=== PATIENT | female | born 1965 | race Caucasian/White ===

== ENCOUNTER 2017-10-10 11:14 | Emergency (ER) | payer OTHER ==
[~2017-10-10] VITALS: Ht 170.2 cm; Wt 97.5 kg
[~2017-10-10 11:14] MED LIST: ASPI325 PO; Gabapentin600 MG PO; IBUP800 PO; LORA10 PO; OXYC5 PO; PARO25 PO; PHENYLEPHRINE HCL PO; Theratrum Comp1 EACH PO; VICODIN ES 7.51 EACH PO; VITAMIN D35000 UNIT PO; [UNRECOGNIZED DRUG - CODE] BOTHEYES
[2017-10-10 13:08] LABS: BASOPHILS ABSOLUTE AUTO 0.07 K/mm3 (0.00-0.23); BASOPHILS PERCENT AUTO 1 % (0-2); EOSINOPHILS ABSOLUTE AUTO 0.11 K/mm3 (0.00-0.68); EOSINOPHILS PERCENT AUTO 1 % (0-6); Hematocrit 41.9 % (33.0-51.0); Hemoglobin 14.7 g/dL (11.5-16.0); IMMATURE GRAN ABSOLUTE AUTO 0.01 K/mm3 (0.00-0.10); IMMATURE GRAN PERCENT AUTO 0 % (0-1); LYMPHOCYTES ABSOLUTE AUTO 2.43 K/mm3 (0.84-5.20); LYMPHOCYTES PERCENT AUTO 28 % (21-46); MONOCYTES PERCENT AUTO 7 % (4-13); Mean Corpuscular HGB 29.9 pg (26.0-34.0); Mean Corpuscular HGB Conc 35.1 g/dL (31.5-36.5); Mean Corpuscular Volume 85 fL (80-100); Mean Platelet Volume 8.4 fL (9.1-12.4); NEUTROPHILS ABSOLUTE AUTO 5.49 K/mm3 (1.96-9.15); NEUTROPHILS PERCENT AUTO 63 % (41-73); Platelet Count 424 K/mm3 (150-400); RDW Coefficient Variation 11.6 % (11.7-14.2); RDW Standard Deviation 35.4 fL (35.1-46.3); Red Blood Cell Count 4.91 M/mm3 (3.80-5.20); White Blood Cell Count 8.71 K/mm3 (4.00-11.30)
[2017-10-10 13:26] LABS: Troponin I <0.015 ng/mL (0.000-0.040)
[2017-10-10 13:27] LABS: Alanine Aminotransfer (ALT/SGP 29 U/L (12-78); Albumin, Blood 3.8 g/dL (3.4-5.0); Albumin/Globulin Ratio 0.8 (0.8-1.8); Alk Phos 102 U/L (50-136); Anion Gap 9 mmol/L (6-16); Aspartate Aminotrans (AST/SGOT 21 U/L (12-37); Bilirubin, Total 0.2 mg/dL (0.1-1.0); Blood Urea Nitrogen 11 mg/dL (8-24); Bun/Creatinine Ratio 14.9 (12.0-20.0); CO2, Blood 25 mmol/L (21-32); Calcium, Blood 8.8 mg/dL (8.5-10.1); Chloride, Blood 105 mmol/L (98-108); Creatinine, Blood 0.74 mg/dL (0.40-1.00); Globulin, Blood 4.5 g/dL (2.2-4.0); Glomerular Filtration Rate >60 (60-); Glucose, Blood 137 mg/dL (70-99); Potassium, Blood 3.3 mmol/L (3.5-5.5); Sodium, Blood 139 mmol/L (136-145); Total Protein, Blood 8.3 g/dL (6.4-8.2)
== END 2017-10-10 16:46 | disposition home or self-care (01) ==
LOC: ER 11:14
PROVIDERS: Emergency Medicine
DX: R07.9 Chest pain, unspecified (principal); I10 Essential (primary) hypertension; F31.9 Bipolar disorder, unspecified; Z88.1 Allergy status to other antibiotic agents; Z79.899 Other long term (current) drug therapy; Z79.82 Long term (current) use of aspirin; Z98.51 Tubal ligation status
CPT/HCPCS: 36415; 71046; 80053; 81000; 83880; 84443; 84484; 85025; 93005; 93010; 99283

== ENCOUNTER → 2017-11-28 | Outpatient (CLI) | payer OTHER ==
[2017-11-28 13:56] LABS: Source, Urine Clean Catch
[2017-11-28 16:31] LABS: Appearance, Urine Hazy (Clear); Bilirubin, Urine Neg (Neg); Blood, Urine 2+ (Neg); Color, Urine Yellow (P-Yellow); Glucose Qualitative, Urine Neg (Neg); Ketones, Urine Neg (Neg); Leukocyte Esterase, Urine 1+ (Neg); Nitrite, Urine Neg (Neg); Protein, Urine 2+ (Neg); Specific Gravity, Urine 1.025 (1.003-1.022); Urobilinogen, Urine NORM (Normal)
[2017-11-28 16:45] LABS: Amorphous Mod (0-Heavy)
[2017-11-28 16:46] LABS: Bacteria Mod /hpf; Red Blood Cells, Urine 0-2 /hpf (0-2); Squamous Epithelial Cells Mod /hpf (Few)
[2017-11-28 16:47] LABS: Calcium Oxalate Crystals Mod /hpf; Yeast/Fungi Urine Few /hpf
[2017-11-29 10:48] LABS: Candida species (DNA Probe) Positive (NEGATIVE); G. vaginalis (DNA Probe) Negative (NEGATIVE); T. vaginalis (DNA Probe) Negative (NEGATIVE)
[2017-12-01 01:40] LABS: HPV Genotype 16 Not Detected (NOTDET); HPV Genotype 18 Not Detected (NOTDET)
[2017-12-17 08:43] LABS: HPV High Risk Other Not Detected (NOTDET)
== END ==
LOC: LAB 12:00 → LAB SHORT 12:00
PROVIDERS: Nurse Practitioner Family
DX: Z12.4 Encounter for screening for malignant neoplasm of cervix (principal); N89.8 Other specified noninflammatory disorders of vagina; R82.99 Other abnormal findings in urine
CPT/HCPCS: 81001; 87086; 87480; 87510; 87624; 87660; G0145

== ENCOUNTER → 2017-12-27 | Outpatient (CLI) | payer OTHER | LOC: LAB SHORT 14:48 → LAB 14:48 | DX: J02.9 Acute pharyngitis, unspecified (principal); R39.89 Other symptoms and signs involving the genitourinary system | CPT/HCPCS: 87070; 87086 ==

== ENCOUNTER 2018-02-19 15:51 | Emergency (ER) | payer OTHER ==
[~2018-02-19] VITALS: Ht 170.2 cm; Wt 99.8 kg
[2018-02-19] MEDS ORDERED: CYCL10 PO (16:18)
[2018-02-19] MEDS ORDERED: ZOLP10 PO (16:18)
[2018-02-19] MEDS ORDERED: DULO30 PO (16:19)
[2018-02-19] MEDS ORDERED: LISI5 PO (16:19)
[2018-02-19] MEDS ORDERED: EZET10 PO (16:19)
[2018-02-19 16:38] LABS: BASOPHILS ABSOLUTE AUTO 0.08 K/mm3 (0.00-0.23); BASOPHILS PERCENT AUTO 1 % (0-2); EOSINOPHILS ABSOLUTE AUTO 0.47 K/mm3 (0.00-0.68); EOSINOPHILS PERCENT AUTO 4 % (0-6); Hematocrit 46.1 % (33.0-51.0); Hemoglobin 16.1 g/dL (11.5-16.0); IMMATURE GRAN ABSOLUTE AUTO 0.07 K/mm3 (0.00-0.10); IMMATURE GRAN PERCENT AUTO 1 % (0-1); LYMPHOCYTES ABSOLUTE AUTO 3.05 K/mm3 (0.84-5.20); LYMPHOCYTES PERCENT AUTO 28 % (21-46); MONOCYTES ABSOLUTE AUTO 0.72 K/mm3 (0.16-1.47); MONOCYTES PERCENT AUTO 7 % (4-13); Mean Corpuscular HGB 29.8 pg (26.0-34.0); Mean Corpuscular HGB Conc 34.9 g/dL (31.5-36.5); Mean Corpuscular Volume 85 fL (80-100); Mean Platelet Volume 8.1 fL (9.1-12.4); NEUTROPHILS ABSOLUTE AUTO 6.62 K/mm3 (1.96-9.15); NEUTROPHILS PERCENT AUTO 60 % (41-73); Platelet Count 484 K/mm3 (150-400); RDW Coefficient Variation 11.5 % (11.7-14.2); RDW Standard Deviation 35.5 fL (35.1-46.3); Red Blood Cell Count 5.41 M/mm3 (3.80-5.20); White Blood Cell Count 11.01 K/mm3 (4.00-11.30)
[2018-02-19 16:55] LABS: Alanine Aminotransfer (ALT/SGP 39 U/L (12-78); Albumin, Blood 3.8 g/dL (3.4-5.0); Albumin/Globulin Ratio 0.8 (0.8-1.8); Alk Phos 111 U/L (50-136); Anion Gap 8 mmol/L (6-16); Aspartate Aminotrans (AST/SGOT 32 U/L (12-37); Bilirubin, Total 0.3 mg/dL (0.1-1.0); Blood Urea Nitrogen 10 mg/dL (8-24); Bun/Creatinine Ratio 12.6 (12.0-20.0); CO2, Blood 23 mmol/L (21-32); Calcium, Blood 9.6 mg/dL (8.5-10.1); Chloride, Blood 107 mmol/L (98-108); Creatinine, Blood 0.79 mg/dL (0.40-1.00); Globulin, Blood 4.9 g/dL (2.2-4.0); Glomerular Filtration Rate >60 (60-); Glucose, Blood 187 mg/dL (70-99); Potassium, Blood 4.2 mmol/L (3.5-5.5); Sodium, Blood 138 mmol/L (136-145); Total Protein, Blood 8.7 g/dL (6.4-8.2)
[2018-02-19 17:33] LABS: Source, Urine Catheter
[2018-02-19 17:36] LABS: Bilirubin, Urine Neg (Neg); Blood, Urine 5+ (Neg); Glucose Qualitative, Urine Neg (Neg); Ketones, Urine 1+ (Neg); Leukocyte Esterase, Urine 3+ (Neg); Nitrite, Urine Neg (Neg); Protein, Urine 4+ (Neg); Specific Gravity, Urine 1.025 (1.003-1.022); Urobilinogen, Urine NORM (Normal)
[2018-02-19 17:45] LABS: Appearance, Urine Cloudy (Clear); Color, Urine Yellow (P-Yellow)
[2018-02-19 17:46] LABS: Red Blood Cells, Urine TNTC /hpf (0-2)
[2018-02-19 17:47] LABS: Bacteria Few /hpf; Squamous Epithelial Cells Rare /hpf (Few); Transitional Epithelial Cells Few /hpf (0-Rare); White Blood Cells, Urine 25-50 /hpf (0-5)
[2018-02-19] MEDS ORDERED: Cipro500 MG PO (19:11)
== END 2018-02-19 19:39 | disposition home or self-care (01) ==
LOC: ER 15:51
PROVIDERS: Emergency Medicine; Internal Medicine
DX: R42 Dizziness and giddiness (principal); R11.0 Nausea; Z88.8 Allergy status to other drugs, medicaments and biological substances; Z79.899 Other long term (current) drug therapy; Z79.891 Long term (current) use of opiate analgesic; F32.9 Major depressive disorder, single episode, unspecified
CPT/HCPCS: 36415; 70450; 80053; 81001; 85025; 93005; 93010; 96361; 96374; 99284; J2405; J7120

== ENCOUNTER 2018-05-21 17:05 | Emergency (ER) | payer OTHER ==
[~2018-05-21] VITALS: Ht 167.6 cm; Wt 104.3 kg
[~2018-05-21 17:05] MED LIST changes: +CYCL10 PO; +Cipro500 MG PO; +DULO30 PO; +EZET10 PO; +LISI5 PO; +ZOLP10 PO
[2018-05-21] MEDS ORDERED: FETZIMA20 MG PO (17:28)
[2018-05-21 18:27] LABS: BASOPHILS ABSOLUTE AUTO 0.05 K/mm3 (0.00-0.23); BASOPHILS PERCENT AUTO 1 % (0-2); EOSINOPHILS ABSOLUTE AUTO 0.18 K/mm3 (0.00-0.68); EOSINOPHILS PERCENT AUTO 2 % (0-6); Hematocrit 39.5 % (33.0-51.0); Hemoglobin 13.8 g/dL (11.5-16.0); IMMATURE GRAN ABSOLUTE AUTO 0.02 K/mm3 (0.00-0.10); IMMATURE GRAN PERCENT AUTO 0 % (0-1); LYMPHOCYTES ABSOLUTE AUTO 2.58 K/mm3 (0.84-5.20); LYMPHOCYTES PERCENT AUTO 26 % (21-46); MONOCYTES ABSOLUTE AUTO 0.59 K/mm3 (0.16-1.47); MONOCYTES PERCENT AUTO 6 % (4-13); Mean Corpuscular HGB 29.4 pg (26.0-34.0); Mean Corpuscular HGB Conc 34.9 g/dL (31.5-36.5); Mean Corpuscular Volume 84 fL (80-100); Mean Platelet Volume 8.2 fL (9.1-12.4); NEUTROPHILS ABSOLUTE AUTO 6.44 K/mm3 (1.96-9.15); NEUTROPHILS PERCENT AUTO 65 % (41-73); Platelet Count 435 K/mm3 (150-400); RDW Coefficient Variation 12.4 % (11.7-14.2); RDW Standard Deviation 37.6 fL (35.1-46.3); White Blood Cell Count 9.86 K/mm3 (4.00-11.30)
[2018-05-21 18:51] LABS: Albumin, Blood 4.1 g/dL (3.4-5.0); Bilirubin, Total 0.2 mg/dL (0.1-1.0); Bun/Creatinine Ratio 12.2 (12.0-20.0); Calcium, Blood 9.3 mg/dL (8.5-10.1); Creatinine, Blood 1.39 mg/dL (0.40-1.00); Globulin, Blood 4.3 g/dL (2.2-4.0); Potassium, Blood 3.7 mmol/L (3.5-5.5); Total Protein, Blood 8.4 g/dL (6.4-8.2)
[2018-05-21 19:06] LABS: Source, Urine Clean Catch
[2018-05-21 19:08] LABS: Bilirubin, Urine Neg (Neg); Blood, Urine Neg (Neg); Glucose Qualitative, Urine Neg (Neg); Ketones, Urine Neg (Neg); Leukocyte Esterase, Urine 1+ (Neg); Nitrite, Urine Neg (Neg); Protein, Urine Neg (Neg); Specific Gravity, Urine 1.015 (1.003-1.022); Urobilinogen, Urine NORM (Normal)
[2018-05-21 19:17] LABS: Appearance, Urine Cloudy (Clear); Color, Urine Yellow (P-Yellow)
[2018-05-21 19:19] LABS: Red Blood Cells, Urine Not Seen /hpf (0-2); White Blood Cells, Urine 0-2 /hpf (0-5)
[2018-05-21 19:20] LABS: Bacteria Rare /hpf; Squamous Epithelial Cells Not Seen /hpf (Few); Transitional Epithelial Cells Rare /hpf (0-Rare)
[2018-05-21 19:21] LABS: Calcium Oxalate Crystals Few /hpf
== END 2018-05-21 19:47 | disposition home or self-care (01) ==
LOC: ER 17:05
PROVIDERS: Emergency Medicine
DX: E86.0 Dehydration (principal); Z88.1 Allergy status to other antibiotic agents; Z79.899 Other long term (current) drug therapy; Z79.891 Long term (current) use of opiate analgesic; I95.1 Orthostatic hypotension; F32.9 Major depressive disorder, single episode, unspecified
CPT/HCPCS: 36415; 71046; 80053; 81001; 85025; 93005; 93010; 96374; 99284-25; J2405; J7120

== ENCOUNTER → 2019-04-07 | Outpatient (CLI) | payer OTHER ==
[~2019-04-07] MED LIST changes: +DESV50 PO; +ESTRADIOL42.5 GM; +FETZIMA20 MG PO; +GEMF600 PO; +HYDPAM50; +Norco 7.5-3251 EACH PO
[2019-04-07 14:24] LABS: U Amphetamine Screen Not Detected; U Barbituate Screen Not Detected; U Benzodiazapine Screen Not Detected; U Buprenorphine Screen Not Detected; U Cannabinoids Screen DETECTED; U Cocaine Screen Not Detected; U Methadone Screen Not Detected; U Methamphetamine Screen Not Detected; U Opiates Screen Not Detected; U Oxycodone Screen DETECTED; U Phencyclidine Screen Not Detected; U Propoxyphene Screen Not Detected
== END | disposition home or self-care (01) ==
LOC: LAB SHORT 13:01 → LAB 13:01
PROVIDERS: Registered Nurse Psychiatric/Mental Health
DX: F33.0 Major depressive disorder, recurrent, mild (principal); Z79.899 Other long term (current) drug therapy
CPT/HCPCS: G0480

== ENCOUNTER → 2020-06-07 | Outpatient (CLI) | payer OTHER | END | disposition home or self-care (01) | LOC: LAB SHORT 19:45 → LAB 19:45 | DX: R30.0 Dysuria (principal) | CPT/HCPCS: 87086 ==

== ENCOUNTER → 2020-06-13 | Outpatient (CLI) | payer OTHER ==
[2020-06-13 19:57] LABS: Percent Saturation 20.9 % (15.0-50.0)
== END | disposition home or self-care (01) ==
LOC: LAB 17:51 → LAB SHORT 17:51
PROVIDERS: Internal Medicine Hematology & Oncology
DX: D47.3 Essential (hemorrhagic) thrombocythemia (principal)
CPT/HCPCS: 82607; 82728; 82746; 83540; 83550

== ENCOUNTER → 2020-06-30 | Outpatient (CLI) | payer OTHER ==
[2020-06-30 14:43] LABS: Candida species (DNA Probe) Negative (NEGATIVE); G. vaginalis (DNA Probe) Negative (NEGATIVE); T. vaginalis (DNA Probe) Negative (NEGATIVE)
== END | disposition home or self-care (01) ==
LOC: LAB SHORT 10:00 → LAB 10:00
PROVIDERS: Nurse Practitioner Family
DX: N89.8 Other specified noninflammatory disorders of vagina (principal)
CPT/HCPCS: 87480; 87510; 87660

== ENCOUNTER 2020-07-28 09:32 | Day surgery (SDC) | payer OTHER ==
[~2020-07-28] VITALS: Ht 167.6 cm; Wt 97.7 kg
[~2020-07-28 09:32] MED LIST changes: -ESTRADIOL42.5 GM; +ESTRADIOL42.5 GM VAG
--- NOTE | 2020-07-28 10:17 | NUR ---
History, Chart, Medications and Allergies reviewed before start of procedure.Patient confirms NPO status and agrees with scheduled surgery. Patient reports completing Chlorhexadine shower X2 prior to admission to hospital.Surgical site prepped with 2% Chlorhexidine cloth wipe. Lungs clear T/O to Auscultation.
--- NOTE | 2020-07-28 17:46 | NUR ---
PT ARRIVED TO THE ROOM POST-OP AT APPROXIMATELY 1700. SHE AWAKENS TO VERBAL STIMULI BUT IS QUITE DROWSY AND FALLS ASLEEP BETWEEN CARE. SHE RATES HER PAIN AT 10/10. VS ARE STABLE; HOWEVER HER O2 SATURATION DECREASES WHEN ASLEEP. PT IS ON 2L O2 VIA NC AND SHE HAS A CONTINUOUS PULSE OXIMETER IN PLACE, O2 SATURATION DROPS WHEN PT IS ASLEEP IF SHE IS NOT ON OXYGEN. PT WAS EDUCATED THAT SHE CANNOT HAVE FURTHER NARCOTIC PAIN MEDICATION UNTIL SHE IS MORE AWAKE. PT REPORTED UNDERSTANDING AND WAS GIVEN TORADOL TO MANAGE PAIN. SHE APPEARS TO BE HAVING MILD HALLUCINATIONS; SHE REPORTED TO NURSING STAFF THAT SHE SAW A MAN OUTSIDE THE WINDOW AND HE WAS GIVING HER PAIN MEDICATION. PT WAS REORIENTED, WILL CONTINUE TO MONITOR. ATTEMPTED TO CALL PT'S SISTER PER PT REQUEST, MESSAGE LEFT WITH CALL BACK NUMBER. PT APPEARS TO REST COMFORTABLY WITH HER EYES CLOSED BETWEEN CARE.
--- NOTE | 2020-07-28 19:02 | NUR ---
ELEVATED BP PT'S BP IS ELEVATED AT THIS TIME. ANSWERING SERVICE PLACING CALL TO TRADE EMBALMER CAN STACKER R/T ELEVATED BLOOD PRESSURE. AWAITING RETURN CALL AT THIS TIME.
--- NOTE | 2020-07-28 19:44 | NUR ---
METOPROLOL ALLERGY PT HAS ALLERGY LISTED TO METOPROLOL. WHEN ASKED ABOUT ALLERGY SHE REPORTS SHE DOES NOT REMEMBER HAVING AN ALLERGY TO METOPROLOL. DR. TAN NOTIFIED AND STATED IT IS OK TO GIVE LABETOLOL DESPITE ALLERGY TO METOPROLOL. SUBHASH RN NOTIFIED OF ORDERS.
[2020-07-29 05:04] LABS: BASOPHILS ABSOLUTE AUTO 0.02 K/mm3 (0.00-0.23); BASOPHILS PERCENT AUTO 0 % (0-2); EOSINOPHILS PERCENT AUTO 0 % (0-6); Hemoglobin 11.9 g/dL (11.5-16.0); IMMATURE GRAN ABSOLUTE AUTO 0.03 K/mm3 (0.00-0.10); IMMATURE GRAN PERCENT AUTO 0 % (0-1); LYMPHOCYTES ABSOLUTE AUTO 1.48 K/mm3 (0.84-5.20); LYMPHOCYTES PERCENT AUTO 13 % (21-46); MONOCYTES ABSOLUTE AUTO 1.01 K/mm3 (0.16-1.47); MONOCYTES PERCENT AUTO 9 % (4-13); Mean Corpuscular HGB 29.3 pg (26.0-34.0); Mean Corpuscular HGB Conc 33.1 g/dL (31.5-36.5); Mean Corpuscular Volume 89 fL (80-100); Mean Platelet Volume 8.3 fL (9.1-12.4); NEUTROPHILS ABSOLUTE AUTO 9.06 K/mm3 (1.96-9.15); NEUTROPHILS PERCENT AUTO 78 % (41-73); Platelet Count 370 K/mm3 (150-400); RDW Coefficient Variation 11.7 % (11.7-14.2); RDW Standard Deviation 37.2 fL (35.1-46.3); Red Blood Cell Count 4.06 M/mm3 (3.80-5.20)
[2020-07-29 05:26] LABS: Alanine Aminotransfer (ALT/SGP 23 U/L (12-78); Albumin, Blood 3.2 g/dL (3.4-5.0); Albumin/Globulin Ratio 0.9 (0.8-1.8); Alk Phos 78 U/L (50-136); Anion Gap 7 mmol/L (6-16); Aspartate Aminotrans (AST/SGOT 22 U/L (12-37); Bilirubin, Total 0.3 mg/dL (0.1-1.0); Blood Urea Nitrogen 11 mg/dL (8-24); Bun/Creatinine Ratio 15.2 (12.0-20.0); CO2, Blood 24 mmol/L (21-32); Calcium, Blood 8.7 mg/dL (8.5-10.1); Chloride, Blood 109 mmol/L (98-108); Creatinine, Blood 0.73 mg/dL (0.40-1.00); Globulin, Blood 3.6 g/dL (2.2-4.0); Glomerular Filtration Rate >60 (60-); Glucose, Blood 99 mg/dL (70-99); Sodium, Blood 140 mmol/L (136-145); Total Protein, Blood 6.8 g/dL (6.4-8.2)
--- NOTE | 2020-07-29 06:06 | NUR ---
SUMMARY PTS BP IMPROVED. DID NOT REQUIRE PRN MEDS.AMBULATORY TO CHAIR AT BEDSIDE THIS AM.PO PAIN MEDS EFFECTIVE. TOLERATING PO FLUIDS WITHOUT NAUSEA.
--- NOTE | 2020-07-29 09:45 | NUR ---
07/29/20 0945 Ann Ghotra VERIFICATIONS: EDIT CHART.
[2020-07-29] MEDS ORDERED: DOCU100 PO (11:43)
[2020-07-29] MEDS ORDERED: DULCOLAX400 MG/5 M PO (11:44)
[2020-07-29] MEDS ORDERED: SENN187 PO (11:45)
[2020-07-29] MEDS ORDERED: PROM25 PO (11:45)
[2020-07-29] MEDS ORDERED: SIME80CH PO (11:46)
[2020-07-29] MEDS ORDERED: ESTRADIOL2 MG PO (11:48)
--- NOTE | 2020-07-29 14:34 | NUR ---
Patient discharged home. IVs out. Tele off. Prescription given to patient. Discharge instructions given, explained, and signed. Patient to follow up with Dr. Quintero. Patient denied questions or concerns at discharge.
== END 2020-07-29 14:38 | disposition home or self-care (01) ==
LOC: ORSCMMR 09:32 → SURS 09:32 → ORSCMMR 09:33 → ORD 11:00 → ORSCMMR 11:00 → SURS 16:41 → ORSCMMR 07-29 14:38
PROVIDERS: Internal Medicine; Obstetrics & Gynecology
PROC: 0UT74ZZ Resection of Bilateral Fallopian Tubes, Percutaneous Endoscopic Approach (ICD-10-PCS; principal; 2020-07-28 11:00)
PROC: 0UT24ZZ Resection of Bilateral Ovaries, Percutaneous Endoscopic Approach (ICD-10-PCS; principal; 2020-07-28 11:00)
PROC: 0UT94ZZ Resection of Uterus, Percutaneous Endoscopic Approach (ICD-10-PCS; principal; 2020-07-28 11:00)
PROC: 8E0Y3CZ Robotic Assisted Procedure of Lower Extremity, Percutaneous Approach (ICD-10-PCS; principal; 2020-07-28 11:00)
DX: N95.0 Postmenopausal bleeding (principal); C54.1 Malignant neoplasm of endometrium; N80.3 Endometriosis of pelvic peritoneum; D25.9 Leiomyoma of uterus, unspecified; I10 Essential (primary) hypertension; J45.909 Unspecified asthma, uncomplicated; E78.5 Hyperlipidemia, unspecified; Z79.899 Other long term (current) drug therapy
CPT/HCPCS: 58573; S2900; 36415; 80053; 85025; 88307; 88341; 88342; 94762; J0690; J1100; J1170; J1885; J2060; J2250; J2370; J2405; J2704; J3010; J7120

== ENCOUNTER → 2020-09-27 | Outpatient (CLI) | payer OTHER ==
[~2020-09-27] MED LIST changes: +DOCU100 PO; +DULCOLAX400 MG/5 M PO; +ESTRADIOL2 MG PO; +PROM25 PO; +SENN187 PO; +SIME80CH PO
[2020-09-27 23:03] LABS: Percent Saturation 24.6 % (15.0-50.0)
== END | disposition home or self-care (01) ==
LOC: LAB SHORT 13:15 → LAB 13:15
PROVIDERS: Internal Medicine Hematology & Oncology
DX: D50.0 Iron deficiency anemia secondary to blood loss (chronic) (principal)
CPT/HCPCS: 82728; 83540; 83550

== ENCOUNTER 2021-08-09 07:19 | Day surgery (SDC) | payer OTHER ==
[~2021-08-09] VITALS: Ht 167.6 cm; Wt 95.4 kg
[~2021-08-09 07:19] MED LIST changes: +ESTRADIOL CREAM
--- NOTE | 2021-08-09 09:04 | NUR ---
History, Chart, Medications and Allergies reviewed before start of procedure.Pre-Op teaching done. Pt verbalizes understanding. Patient States Post-Procedure ride home has been arranged.
--- NOTE | 2021-08-09 09:23 | NUR ---
08/09/21 0923 NAOMI TUTTLE History, Chart, Medications and Allergies reviewed before start of procedure. Patient confirms NPO status and agrees with scheduled surgery. 3-LEAD EKG REVIEWED WITH PHYSICIAN PRIOR TO START OF PROCEDURE. MONITOR INTACT WITH CONTINUOUS PULSE OXIMETRY AND INTERMITTENT BP. PATIENT DETERMINED TO BE ASA APPROPRIATE FOR PROPOFOL SEDATION PRIOR TO START OF PROCEDURE BY DR. LOYA. O2 VIA N/C INTACT THROUGHOUT SEDATION/PROCEDURE.
--- NOTE | 2021-08-09 10:21 | NUR ---
DISCHARGE SUMMARY PT A&OX4, VSS, CELESTINE PO, DENIES PAIN, SCHEDULED [facility]SP[facility] HOME. IV DC'D. LEFT VIA WC WITH DC PAPERS.
== END 2021-08-09 23:48 | disposition home or self-care (01) ==
LOC: ORSCMMR 07:19 → ORD 09:00 → ORSCMMR 23:48
PROVIDERS: Internal Medicine Gastroenterology
PROC: 0DBH8ZX Excision of Cecum, Via Natural or Artificial Opening Endoscopic, Diagnostic (ICD-10-PCS; principal; 2021-08-09 09:00)
DX: Z12.11 Encounter for screening for malignant neoplasm of colon (principal); Z86.010 Personal history of colon polyps; D12.0 Benign neoplasm of cecum; E78.00 Pure hypercholesterolemia, unspecified; F32.A Depression, unspecified; Z79.899 Other long term (current) drug therapy
CPT/HCPCS: 88305; J2704; J7120

== ENCOUNTER → 2022-07-03 | Outpatient (CLI) | payer OTHER ==
[~2022-07-03] MED LIST changes: +GABA400 PO; +Norco 10-325 T1 EACH PO; +TIZANIDINE HCL2 MG PO
[2022-07-03 18:59] LABS: Percent Saturation 23.6 % (15.0-50.0)
== END | disposition home or self-care (01) ==
LOC: LAB SHORT 15:00 → LAB 15:00
PROVIDERS: Internal Medicine Hematology & Oncology
DX: D50.0 Iron deficiency anemia secondary to blood loss (chronic) (principal)
CPT/HCPCS: 82728; 83540; 83550

== ENCOUNTER → 2023-02-05 | Outpatient (CLI) | payer OTHER | END | disposition home or self-care (01) | LOC: LAB 16:30 → LAB SHORT 16:30 | DX: R07.0 Pain in throat (principal) | CPT/HCPCS: 87081 ==

== ENCOUNTER → 2023-10-15 | Outpatient (CLI) | payer OTHER ==
[2023-10-15 15:39] LABS: Free Thyroxine 0.83 ng/dL (0.70-1.60)
[2023-10-15 15:41] LABS: Thyroid Stimulating Hormone 0.948 uIU/mL (0.360-4.800)
[2023-10-17 08:11] LABS: A/G RATIO 1.7 (1.2-2.2); ALKALINE PHOSPHATASE, S 117 IU/L (44-121); ALT (SGPT) 45 IU/L (0-32); AST (SGOT) 44 IU/L (0-40); BILIRUBIN, TOTAL <0.2 mg/dL (0.0-1.2); BUN 11 mg/dL (8-27); BUN/CREATININE RATIO 15 (12-28); CALCIUM, SERUM 9.1 mg/dL (8.7-10.3); CARBON DIOXIDE, TOTAL 17 mmol/L (20-29); CHLORIDE, SERUM 107 mmol/L (96-106); CREATININE, SERUM 0.74 mg/dL (0.57-1.00); GLOBULIN, TOTAL 2.5 g/dL (1.5-4.5); GLUCOSE, SERUM 122 mg/dL (70-99); POTASSIUM, SERUM 3.8 mmol/L (3.5-5.2); PROTEIN, TOTAL, SERUM 6.7 g/dL (6.0-8.5); SODIUM, SERUM 141 mmol/L (134-144)
== END | disposition home or self-care (01) ==
LOC: LAB 13:21 → LAB SHORT 13:21
PROVIDERS: Internal Medicine Hematology & Oncology
DX: M79.671 Pain in right foot (principal); D64.9 Anemia, unspecified; R94.5 Abnormal results of liver function studies
CPT/HCPCS: 80053; 80069; 84439; 84443

== ENCOUNTER → 2025-05-31 | Outpatient (CLI) | payer OTHER ==
[2025-05-31 15:44] LABS: Bacterial Vaginosis PCR Negative (NEGATIVE); Candida Group, PCR NOT DETECTED (NOT DETECT); Candida glabrata-krusei, PCR NOT DETECTED (NOT DETECT)
== END ==
LOC: LAB SHORT 14:15 → LAB 14:15
PROVIDERS: Nurse Practitioner Family
DX: R30.0 Dysuria (principal)
CPT/HCPCS: 81515; 87086